=== PATIENT | male | born 1955 | race Caucasian/White ===

== ENCOUNTER 2017-12-15 21:38 | Inpatient (IN) | payer OTHER, SELFPAY ==
[2017-12-15 23:40] VITALS: BP 106/73; PULSE 63; RESP 16; TEMP 36.3; O2SAT 94
[2017-12-15] MEDS: SODIUM CHLORIDE 0.9% 1,000 ML 125 ML IV (23:40)
[2017-12-15 23:50] VITALS: BMI 24.1
[2017-12-16] VITALS (8 sets, daily range): BP systolic 113–122; BP diastolic 72–78; PULSE 56–71; RESP 16; TEMP 36.4–37.5; O2SAT 94–98
[2017-12-16] MEDS: HYDROMORPHONE PCA 6 MG/30 ML PCA.VIAL IV ×4 (00:40→21:56)
--- NOTE | 2017-12-16 01:17 | PC.NURSE ---
Financial Agent Note: [id number]: Arrived via ambulance on stretcher from [facility] [place]. Alert, oriented X3. Pt able to stand walk to bed. NGT in place in rt nare, and clamped for journey to . Saline lock in place in lt forearm. IV NS started at 125cc/hr. Calf SCDs put on. NGT connected to low intermittent wall suction: tube is patent and drainage is clear brown. Valle catheter patent, and urine is clear conrad. 0030: Kenia arrived.
[2017-12-16 05:58] LABS: Add Manual Diff / Slide Review NO; Basophils Percent Auto 0.3 % (0-2); Eosinophils Percent Auto 0.3 % (2-4); Hematocrit 42.8 % (41-53); Hemoglobin 14.6 g/dL (13.5-17.5); Lymphocytes Percent Auto 15.8 % (25-40); Mean Corpuscular HGB Conc 34.1 % (30-36); Mean Corpuscular Hemoglobin 29.9 PG (26-34); Mean Corpuscular Volume 87.7 fL (80-100); Monocytes Percent Auto 7.1 % (3-14); Neutrophils Absolute Auto 7700 /uL (3000-5900); Neutrophils Percent Auto 76.5 % (50-75); Platelet Count 345 X10^3/uL (150-400); Red Blood Cell Count 4.88 X10^6/uL (4.5-5.9); Red Cell Distribution Width 13.6 % (11.6-14.8)
[2017-12-16 06:11] LABS: BUN Creatinine Ratio 17.5 (6-22); Blood Urea Nitrogen 14 mg/dL (9-20); Calcium 8.6 mg/dL (8.4-10.2); Carbon Dioxide 28 mmol/L (22-32); Chloride 104 mmol/L (98-107); Estimated Glomerular Filt Rate > 60.0 mL/min (>60); Glucose 102 mg/dL (80-110); HEMOLYSIS < 15 (0-50); Potassium 3.9 mmol/L (3.4-5.1); Sodium 141 mmol/L (137-145)
[2017-12-16 06:49] LABS: INR 1.2 (0.9-1.3); Prothrombin Time 13.2 SECONDS (10.1-12.7)
--- NOTE | 2017-12-16 07:30 | DI.RAD.S_ITS ---
PROCEDURE: XR ABDOMEN 3V INDICATIONS: small bowel obstruction TECHNIQUE: One view chest and two views of the abdomen were acquired. COMPARISON: None. FINDINGS: Surgical changes and devices: Iatrogenic tubing is noted overlying the hemithorax, likely superficial to the patient. Nasogastric tube is present with distal tip barely past the GE junction. Chest: Lungs are clear. Heart size is normal. No pleural effusions. No pneumoperitoneum. Abdomen: Bowel gas pattern demonstrates moderate dilation with scattered fluid levels. No suspicious calcifications. Visualized solid organ contours appear normal. Bones: No suspicious bony lesions. IMPRESSION: 1. Moderate partial small bowel obstruction. 2. Nasogastric tube as above. Recommend forward advancement. Dictated by: Cheyenne Samuels M.D. on 12/16/2017 at 8:35 Approved by: Cheyenne Samuels M.D. on 12/16/2017 at 8:38
[2017-12-16] MEDS: SODIUM CHLORIDE 0.9% 1,000 ML 125 ML IV ×2 (07:52→17:22)
--- NOTE | 2017-12-16 09:19 | PM.HP.1 ---
History of Present Illness Date Patient Seen: 12/16/17 Time Patient Seen: 07:00 Chief complaint: SMALL BOWEL OBSTRUCTION Narrative: 62-year-old male who presented to the emergency department of an [facility] yesterday evening with a 24 hr history of progressive abdominal pain, distention, nausea, and anorexia. His chief complaint was that of the crampy severe abdominal pain he was experiencing diffusely throughout the abdomen. Pain became intolerable. He felt nauseated but did not vomit. His last meal was yesterday morning. Since then he has not had any desire to eat because of his other symptoms. Denies any subjective fever or chills. Last bowel movement was reportedly normal yesterday morning. He has not passed any stool or significant flatus since then. He has had a few small episodes of flatus since his presentation to the emergency department last evening. Examination and evaluation at the [facility] institution revealed a small bowel obstruction for which he received a nasogastric tube and Valle catheter insertion. He has also received analgesia and IV fluid resuscitation. I was contacted late last evening to transfer the patient to our care since they had no surgical services available at that time. Patient arrived in the general counselor hours today. Patient feeling somewhat more comfortable now than his initial presentation last evening. However, he is still having some issues with intermittent mild crampy abdominal pain and distension. No significant bowel function as yet. Patient History Medical History Cancer of sigmoid colon (Acute) Small bowel obstruction due to postoperative adhesions (Acute) Urinary retention (Acute) Colon obstruction (Resolved) History of DVT (deep vein thrombosis) (Resolved) Surgical History History of colostomy (Acute) History of colostomy reversal (Acute) S/P partial colectomy (Acute) Family & Social History Family History: Reviewed 12/16/17 by Wayne Mark MD Social History: household members spouse,other Prior Living Arrangements House Safety & Behavioral: Feels Safe in Current Yes Environment Been Physically Hurt or No Threatened By a Person Suicidal Ideation Description None Suicide Plan Description No Plan Tobacco & Substance use: Smoking Status Former smoker alcohol intake never Substance Use Type does not use Meds Home Medications Medication Instructions Recorded Confirmed Type docusate sodium [Colace] 100 mg PO BIDP PRN #30 cap 07/03/16 Rx tamsulosin [Flomax] 0.4 mg PO QDAY #10 cap 07/03/16 Rx tramadol 100 mg PO Q6HP PRN #30 07/23/16 Rx warfarin [Coumadin] 7.5 mg PO Q DAY #30 tab 07/23/16 Rx Allergies Allergy/AdvReac Type Severity Reaction Status Date / Time morphine Allergy Nightmare Verified 12/16/17 00:31 Review of Systems Constitutional Constitutional: Reports anorexia, Denies chills, Denies fatigue, Denies fever(s) and Denies weakness Eyes Eyes: Denies change in vision, Denies itchy eyes and Denies loss of vision ENT Ears, Nose, Mouth, and Throat: No change in voice and No difficulty swallowing Cardiovascular Cardiovascular: Denies rapid, pounding, or irregular heartbeat, Denies shortness of breath and Denies shortness of breath with activity Respiratory Respiratory: Denies dyspnea, Denies dyspnea on exertion and Denies wheezing Gastrointestinal Gastrointestinal: Reports as per HPI and Denies dysphagia Genitourinary Genitourinary: Reports difficulty urinating (Patient normally perform self catheterization 3 times daily) Musculoskeletal Musculoskeletal: Denies muscle weakness and Denies radiating pain into limb Integumentary/Breasts Skin/Breast: Denies change in pigmentation, Denies skin swelling and Denies jaundice Neurologic Neurologic: Denies loss of vision and Denies weakness Psychiatric Psychiatric: Denies depression Endocrine Endocrine: Denies fatigue and Denies palpitations Hematologic/Lymphatic Hematologic/Lymphatic: Denies easy bleeding and Denies easy bruising Allergic/Immunologic Allergic/Immunologic: Denies itchy eyes and Denies wheezing Exam Vital Signs (past 8 hours): - 12/16/17 04:25 12/16/17 08:00 Temperature 99.5 F 98.3 F Pulse Rate 71 60 Respiratory Rate 16 16 Blood Pressure 122/76 H 118/73 Pulse Oximetry 94 94 Oxygen Delivery Method Room Air Oxygen Flow Rate 0 Narrative Exam Narrative: Well-nourished well-developed male who appears slightly older than his stated age lying comfortably in bed in no acute distress. Alert oriented x3. is at the bedside for my entire visit Sclera nonicteric Nasogastric tube is in place draining bilious fluid. I advanced the nasogastric tube several cm as this morning's x-ray shows it to be barely within the stomach beyond the gastroesophageal junction. Neck is supple Chest clear to auscultation bilaterally with regular rate and rhythm. No murmurs, gallops, rubs Abdomen is soft but distended and mildly tympanitic. He is tender diffusely but mostly toward the right lateral abdomen. Tenderness is moderate in nature but no involuntary guarding or rebound tenderness is present today. He has well-healed midline abdominal scar and left lower quadrant colostomy site status post colostomy reversal in July 2017. No obvious hernias along the incisions or in the inguinal areas bilaterally. No inguinal lymphadenopathy bilaterally. Femoral pulses are palpable and symmetric bilaterally. I appreciate no abdominal masses. No hepatomegaly. Extremities show no clubbing, cyanosis, or edema Objective Labs Result Diagrams: 12/16/17 05:31 12/16/17 05:31 Labs: Laboratory Results - last 24 hr 12/16/17 12/16/17 12/16/17 05:31 05:31 05:31 WBC 10.0 RBC 4.88 Hgb 14.6 Hct 42.8 MCV 87.7 MCH 29.9 MCHC 34.1 RDW 13.6 Plt Count 345 Neut % (Auto) 76.5 H Lymph % (Auto) 15.8 L [place] % (Auto) 7.1 Eos % (Auto) 0.3 L Baso % (Auto) 0.3 Neut # (Auto) 7700 H PT 13.2 H INR 1.2 Sodium 141 Potassium 3.9 Chloride 104 Carbon Dioxide 28 BUN 14 Creatinine 0.80 Estimated GFR > 60.0 BUN/Creatinine Ratio 17.5 Glucose 102 Calcium 8.6 Blood Type Antibody Screen 12/16/17 05:31 WBC RBC Hgb Hct MCV MCH MCHC RDW Plt Count Neut % (Auto) Lymph % (Auto) [place] % (Auto) Eos % (Auto) Baso % (Auto) Neut # (Auto) PT INR Sodium Potassium Chloride Carbon Dioxide BUN Creatinine Estimated GFR BUN/Creatinine Ratio Glucose Calcium Blood Type A Negative Antibody Screen Negative I have reviewed his laboratory studies from the [facility] emergency department. I repeatedly requested a CT [facility] of [facility] be [facility] for my review, but that has yet to be accomplished. I do have the report which shows a moderate grade bowel obstruction in the distal small bowel with transition point in the mid abdomen. No significant free fluid. No pneumatosis. No free air. No hepatic lesions or other masses. I obtained a three view abdominal series this morning which I have personally reviewed. Again, no free air. No pulmonary infiltrates. Nasogastric tube is as above under examination findings. There is some gas in the left colon but no significant stool otherwise. There are multiple dilated loops of small bowel with air-fluid levels consistent with small-bowel obstruction. Assessment & Plan Plan: Assessment/Plan Narrative: 62-year-old male with acute small-bowel obstruction likely secondary to adhesions several months status post colostomy reversal. He did not require any adjuvant therapy for his sigmoid colon cancer. He has no evidence of mesenteric ischemia or infectious complications at this point. We will attempt non operative management with nasogastric tube decompression, IV fluid resuscitation, and bowel rest. Continue Valle catheter due to his chronic urinary retention and need for strict I&Os to monitor urine output. Continue ASSOCIATE SOFTWARE DEVELOPMENT ENGINEER for pain control. I will allow him a few ice chips for oral comfort. DVT prophylaxis has also been ordered, but he has not been on anticoagulation for some time now since the DVT issue resolved several months after his initial operation. I doubt malignant bowel obstruction, especially in light of recent laparotomy. By his report there was no evidence of any residual cancer, but I do not have those records for review at this time either. I will repeat his laboratory studies tomorrow including a lactate level. Continue to follow his examination clinically. I clearly explained to him and his that if he has evidence of deterioration or if the bowel obstruction fail to resolve in a reasonable time frame over the next 48-72 hours then he may very well require exploratory laparotomy and lysis of adhesions with possible bowel resection. I explained that any operation at this point, which would be his 3rd major laparotomy with in 18 months, would be potentially fraught with complications. If he remains stable but does not show evidence of absolute resolution of the obstruction and I may obtain a small-bowel follow-through. Again I discussed all of this with him and his in detail. All questions were answered to his satisfaction, and he voiced understanding. Orders were written.
--- NOTE | 2017-12-16 09:25 | P.HP_ITS ---
History of Present Illness Date Patient Seen: 12/16/17 Time Patient Seen: 07:00 Chief complaint: SMALL BOWEL OBSTRUCTION Narrative: 62-year-old male who presented to the emergency department of an [facility] yesterday evening with a 24 hr history of progressive abdominal pain, distention, nausea, and anorexia. His chief complaint was that of the crampy severe abdominal pain he was experiencing diffusely throughout the abdomen. Pain became intolerable. He felt nauseated but did not vomit. His last meal was yesterday morning. Since then he has not had any desire to eat because of his other symptoms. Denies any subjective fever or chills. Last bowel movement was reportedly normal yesterday morning. He has not passed any stool or significant flatus since then. He has had a few small episodes of flatus since his presentation to the emergency department last evening. Examination and evaluation at the [facility] institution revealed a small bowel obstruction for which he received a nasogastric tube and Valle catheter insertion. He has also received analgesia and IV fluid resuscitation. I was contacted late last evening to transfer the patient to our care since they had no surgical services available at that time. Patient arrived in the early childhood education worker hours today. Patient feeling somewhat more comfortable now than his initial presentation last evening. However, he is still having some issues with intermittent mild crampy abdominal pain and distension. No significant bowel function as yet. Patient History Medical History Cancer of sigmoid colon (Acute) Small bowel obstruction due to postoperative adhesions (Acute) Urinary retention (Acute) Colon obstruction (Resolved) History of DVT (deep vein thrombosis) (Resolved) Surgical History History of colostomy (Acute) History of colostomy reversal (Acute) S/P partial colectomy (Acute) Family & Social History Family History: Reviewed 12/16/17 by Wayne Mark MD Social History: household members spouse,other Prior Living Arrangements House Safety & Behavioral: Feels Safe in Current Yes Environment Been Physically Hurt or No Threatened By a Person Suicidal Ideation Description None Suicide Plan Description No Plan Tobacco & Substance use: Smoking Status Former smoker alcohol intake never Substance Use Type does not use Meds Home Medications Medication Instructions Recorded Confirmed Type docusate sodium [Colace] 100 mg PO BIDP PRN #30 cap 07/03/16 Rx tamsulosin [Flomax] 0.4 mg PO QDAY #10 cap 07/03/16 Rx tramadol 100 mg PO Q6HP PRN #30 07/23/16 Rx warfarin [Coumadin] 7.5 mg PO Q DAY #30 tab 07/23/16 Rx Allergies Allergy/AdvReac Type Severity Reaction Status Date / Time morphine Allergy Nightmare Verified 12/16/17 00:31 Review of Systems Constitutional Constitutional: Reports anorexia, Denies chills, Denies fatigue, Denies fever(s ) and Denies weakness Eyes Eyes: Denies change in vision, Denies itchy eyes and Denies loss of vision ENT Ears, Nose, Mouth, and Throat: No change in voice and No difficulty swallowing Cardiovascular Cardiovascular: Denies rapid, pounding, or irregular heartbeat, Denies shortness of breath and Denies shortness of breath with activity Respiratory Respiratory: Denies dyspnea, Denies dyspnea on exertion and Denies wheezing Gastrointestinal Gastrointestinal: Reports as per HPI and Denies dysphagia Genitourinary Genitourinary: Reports difficulty urinating (Patient normally perform self catheterization 3 times daily) Musculoskeletal Musculoskeletal: Denies muscle weakness and Denies radiating pain into limb Integumentary/Breasts Skin/Breast: Denies change in pigmentation, Denies skin swelling and Denies jaundice Neurologic Neurologic: Denies loss of vision and Denies weakness Psychiatric Psychiatric: Denies depression Endocrine Endocrine: Denies fatigue and Denies palpitations Hematologic/Lymphatic Hematologic/Lymphatic: Denies easy bleeding and Denies easy bruising Allergic/Immunologic Allergic/Immunologic: Denies itchy eyes and Denies wheezing Exam Vital Signs (past 8 hours): - 12/16/17 04:25 12/16/17 08:00 Temperature 99.5 F 98.3 F Pulse Rate 71 60 Respiratory Rate 16 16 Blood Pressure 122/76 H 118/73 Pulse Oximetry 94 94 Oxygen Delivery Method Room Air Oxygen Flow Rate 0 Narrative Exam Narrative: Well-nourished well-developed male who appears slightly older than his stated age lying comfortably in bed in no acute distress. Alert oriented x3. is at the bedside for my entire visit Sclera nonicteric Nasogastric tube is in place draining bilious fluid. I advanced the nasogastric tube several cm as this morning's x-ray shows it to be barely within the stomach beyond the gastroesophageal junction. Neck is supple Chest clear to auscultation bilaterally with regular rate and rhythm. No murmurs , gallops, rubs Abdomen is soft but distended and mildly tympanitic. He is tender diffusely but mostly toward the right lateral abdomen. Tenderness is moderate in nature but no involuntary guarding or rebound tenderness is present today. He has well -healed midline abdominal scar and left lower quadrant colostomy site status post colostomy reversal in July 2017. No obvious hernias along the incisions or in the inguinal areas bilaterally. No inguinal lymphadenopathy bilaterally. Femoral pulses are palpable and symmetric bilaterally. I appreciate no abdominal masses. No hepatomegaly. Extremities show no clubbing, cyanosis, or edema Objective Labs Result Diagrams: 12/16/17 05:31 12/16/17 05:31 Labs: Laboratory Results - last 24 hr 12/16/17 12/16/17 12/16/17 05:31 05:31 05:31 WBC 10.0 RBC 4.88 Hgb 14.6 Hct 42.8 MCV 87.7 MCH 29.9 MCHC 34.1 RDW 13.6 Plt Count 345 Neut % (Auto) 76.5 H Lymph % (Auto) 15.8 L [place] % (Auto) 7.1 Eos % (Auto) 0.3 L Baso % (Auto) 0.3 Neut # (Auto) 7700 H PT 13.2 H INR 1.2 Sodium 141 Potassium 3.9 Chloride 104 Carbon Dioxide 28 BUN 14 Creatinine 0.80 Estimated GFR > 60.0 BUN/Creatinine Ratio 17.5 Glucose 102 Calcium 8.6 Blood Type Antibody Screen 12/16/17 05:31 WBC RBC Hgb Hct MCV MCH MCHC RDW Plt Count Neut % (Auto) Lymph % (Auto) [place] % (Auto) Eos % (Auto) Baso % (Auto) Neut # (Auto) PT INR Sodium Potassium Chloride Carbon Dioxide BUN Creatinine Estimated GFR BUN/Creatinine Ratio Glucose Calcium Blood Type A Negative Antibody Screen Negative I have reviewed his laboratory studies from the [facility] emergency department. I repeatedly requested a CT [facility] of [facility] be [facility] for my review, but that has yet to be accomplished. I do have the report which shows a moderate grade bowel obstruction in the distal small bowel with transition point in the mid abdomen. No significant free fluid. No pneumatosis. No free air. No hepatic lesions or other masses. I obtained a three view abdominal series this morning which I have personally reviewed. Again, no free air. No pulmonary infiltrates. Nasogastric tube is as above under examination findings. There is some gas in the left colon but no significant stool otherwise. There are multiple dilated loops of small bowel with air-fluid levels consistent with small-bowel obstruction. Assessment & Plan Plan: Assessment/Plan Narrative: 62-year-old male with acute small-bowel obstruction likely secondary to adhesions several months status post colostomy reversal. He did not require any adjuvant therapy for his sigmoid colon cancer. He has no evidence of mesenteric ischemia or infectious complications at this point. We will attempt non operative management with nasogastric tube decompression, IV fluid resuscitation, and bowel rest. Continue Valle catheter due to his chronic urinary retention and need for strict I&Os to monitor urine output. Continue REMEDIATION CONSULTANT for pain control. I will allow him a few ice chips for oral comfort. DVT prophylaxis has also been ordered, but he has not been on anticoagulation for some time now since the DVT issue resolved several months after his initial operation. I doubt malignant bowel obstruction, especially in light of recent laparotomy. By his report there was no evidence of any residual cancer, but I do not have those records for review at this time either. I will repeat his laboratory studies tomorrow including a lactate level. Continue to follow his examination clinically. I clearly explained to him and his that if he has evidence of deterioration or if the bowel obstruction fail to resolve in a reasonable time frame over the next 48-72 hours then he may very well require exploratory laparotomy and lysis of adhesions with possible bowel resection. I explained that any operation at this point, which would be his 3rd major laparotomy with in 18 months, would be potentially fraught with complications. If he remains stable but does not show evidence of absolute resolution of the obstruction and I may obtain a small-bowel follow-through. Again I discussed all of this with him and his in detail. All questions were answered to his satisfaction, and he voiced understanding. Orders were written.
[2017-12-16] MEDS: PANTOPRAZOLE 40 MG VIAL IV (09:37)
[2017-12-16] MEDS: ENOXAPARIN 40 MG/0.4 ML SYRINGE SUBCUT (09:37)
[2017-12-16] MEDS: levoFLOXacin 750 MG/150 ML PIGGYBACK 100 MG IV (14:40)
--- NOTE | 2017-12-16 15:31 | CM.IDA ---
Addendum entered by MAGY Pierson 12/16/17 15:39: Sent email to admissions to update insurance information from self pay to [employer] (spouse is policy fong). Original Note: DCP Assessment Note: Pt is a 62 yo male, resident of [place]. Pt admitted for SBO. Pt's PCP is not listed. Insurance, as confirmed by pt and spouse, is [employer]. See Assessment below. Home is expected. Discharge Planning/Care Management CM Discharge Assessment Start: 12/16/17 15:21 Freq: Status: Active Protocol: Document 12/16/17 15:21 MINERVA (Rec: 12/16/17 15:31 MINERVA [id number]) Discharge Planning Assessment Assigned Data Collector MINERVA History Provided By Patient Significant Other Prior Living Arrangements House Household Members spouse other Independent with ADL's Yes Is patient alert and oriented? Yes Referrals Initiated None needed Comment Pending hospital course Discharge Plan Home Transportation Arrangement Spouse Additional Comment Met w/pt and spouse this afternoon. Spouse Kenia is an RN here at . Pt hopeful his condition will improve and he will not need surgery. Pt is indp at baseline, and if he does not need surgery, expects to return home w/spouse to assist prn. Review Status In Process Next Review Type Discharge Review
--- NOTE | 2017-12-16 17:10 | P.PN_ITS ---
Subjective Date Patient Seen: 12/16/17 Time Patient Seen: 17:06 Interval history: Patient feeling slightly better. No flatus or bowel movement however. Denies nausea or vomiting. Has occasional hiccups but nasogastric tube functioning well in good position. Continues to make adequate urine being collected by Valle catheter. Pain is subsiding but still present intermittently. Feels less distended this afternoon. Exam Vital Signs (past 8 hours): - 12/16/17 09:30 12/16/17 12:00 12/16/17 15:20 Temperature 98.5 F 97.9 F Pulse Rate 56 L 62 Respiratory Rate 16 16 Blood Pressure 121/73 H 113/78 Pulse Oximetry 98 96 98 Oxygen Delivery Method Room Air Oxygen Flow Rate 0 Narrative Exam Narrative: No fevers. No tachycardia. Hemodynamically stable Resting comfortably in bed in no acute distress. Alert oriented x3 is at the bedside Abdomen is slightly less distended and softer this afternoon. He remains tender throughout the abdomen but his right lower quadrant tenderness at is much less pronounced this afternoon on examination. No guarding or rebound Objective Labs Result Diagrams: 12/16/17 05:31 12/16/17 05:31 Labs: Laboratory Results - last 24 hr 12/16/17 12/16/17 12/16/17 05:31 05:31 05:31 WBC 10.0 RBC 4.88 Hgb 14.6 Hct 42.8 MCV 87.7 MCH 29.9 MCHC 34.1 RDW 13.6 Plt Count 345 Neut % (Auto) 76.5 H Lymph % (Auto) 15.8 L [place] % (Auto) 7.1 Eos % (Auto) 0.3 L Baso % (Auto) 0.3 Neut # (Auto) 7700 H PT 13.2 H INR 1.2 Sodium 141 Potassium 3.9 Chloride 104 Carbon Dioxide 28 BUN 14 Creatinine 0.80 Estimated GFR > 60.0 BUN/Creatinine Ratio 17.5 Glucose 102 Calcium 8.6 Blood Type Antibody Screen 12/16/17 05:31 WBC RBC Hgb Hct MCV MCH MCHC RDW Plt Count Neut % (Auto) Lymph % (Auto) [place] % (Auto) Eos % (Auto) Baso % (Auto) Neut # (Auto) PT INR Sodium Potassium Chloride Carbon Dioxide BUN Creatinine Estimated GFR BUN/Creatinine Ratio Glucose Calcium Blood Type A Negative Antibody Screen Negative Assessment & Plan Plan: Assessment/Plan Narrative: 62-year-old male with partial small-bowel obstruction likely secondary to adhesions after recent laparotomies including colostomy reversal. Currently he is stable. He has no evidence of mesenteric ischemia or complete bowel obstruction. His exam is mildly improved. I will therefore continue conservative non operative management with nasogastric tube decompression, bowel rest, and IV fluid resuscitation. All questions were answered to his satisfaction, and he voiced understanding. We will repeat his laboratory studies tomorrow. If he does not show evidence of significant progress over the next 24 to 48 hr but is otherwise stable then we will obtain a small-bowel follow-through study. Of note, the patient's CT scan films from the outlying institution never were available on our radiology system. We will continue to try to obtain those for comparison purposes.
[2017-12-16] MEDS: BENZOCAINE/MENTHOL 1 LOZ PKT 1 EACH PO ×2 (19:20→21:59)
[2017-12-17] VITALS (9 sets, daily range): BP systolic 115–131; BP diastolic 62–81; PULSE 59–83; RESP 16–18; TEMP 36.5–37.1; O2SAT 93–98
[2017-12-17] MEDS: SODIUM CHLORIDE 0.9% 1,000 ML 125 ML IV (01:34)
[2017-12-17 05:20] LABS: Add Manual Diff / Slide Review NO; Basophils Percent Auto 1.1 % (0-2); Eosinophils Percent Auto 3.7 % (2-4); Hematocrit 38.3 % (41-53); Lymphocytes Percent Auto 27.3 % (25-40); Mean Corpuscular Hemoglobin 29.9 PG (26-34); Mean Corpuscular Volume 87.8 fL (80-100); Monocytes Percent Auto 9.1 % (3-14); Neutrophils Absolute Auto 4300 /uL (3000-5900); Neutrophils Percent Auto 58.8 % (50-75); Platelet Count 279 X10^3/uL (150-400); Red Blood Cell Count 4.36 X10^6/uL (4.5-5.9); Red Cell Distribution Width 13.4 % (11.6-14.8); White Blood Cell Count 7.3 X10^3/uL (4.5-11.0)
[2017-12-17 05:30] LABS: Lactate (Lactic Acid) 0.6 mmol/L (0.7-2.1)
[2017-12-17 05:31] LABS: Blood Urea Nitrogen 16 mg/dL (9-20); Carbon Dioxide 28 mmol/L (22-32); Chloride 105 mmol/L (98-107); Estimated Glomerular Filt Rate > 60.0 mL/min (>60); Glucose 83 mg/dL (80-110); HEMOLYSIS < 15 (0-50); Potassium 3.6 mmol/L (3.4-5.1); Sodium 140 mmol/L (137-145)
[2017-12-17] MEDS: HYDROMORPHONE PCA 6 MG/30 ML PCA.VIAL IV (06:09)
--- NOTE | 2017-12-17 07:11 | PM.PN.1 ---
Subjective Date Patient Seen: 12/17/17 Time Patient Seen: 07:11 Interval history: Patient states that his pain has decreased significantly. He still has some residual right-sided abdominal pain which is well controlled with the INSURANCE MARKETING REP currently. He did pass flatus and a formed stool this morning. Valle catheter remains in place. He would like to Valle to remain in place until such time he is more ambulatory then he will resume his usual self catheterization regimen. Denies any nausea or vomiting. Hiccups have resolved. No chest pain or shortness of breath. No subjective fever or chills. Exam Vital Signs (past 8 hours): - 12/16/17 23:50 12/17/17 01:18 12/17/17 05:00 Temperature 99.1 F 98.3 F Pulse Rate 61 62 Respiratory Rate 16 16 Blood Pressure 121/72 H 115/74 Pulse Oximetry 96 97 95 Oxygen Delivery Method Room Air Oxygen Flow Rate 0 Narrative Exam Narrative: Well-nourished well-developed in no acute distress. Lying comfortably in bed. is at the bedside. Alert oriented x3. No fevers. Heart rate and blood pressure remain normal. Chest clear to auscultation bilaterally with regular rate and rhythm. No crackles or wheezes. Abdomen shows few active bowel sounds throughout. He is less distended. He is not tympanitic today. Remains mildly tender in the right lateral abdomen only but certainly with no guarding or rebound. Tenderness is actually much less than at his initial examination. No masses. Extremities show no clubbing, cyanosis, or edema Valle catheter is draining adequate amounts of clear yellow urine Nasogastric tube output remains moderate and somewhat bilious. Objective Labs Result Diagrams: 12/17/17 05:03 12/17/17 05:03 Labs: Laboratory Results - last 24 hr 12/16/17 12/17/17 12/17/17 05:31 05:03 05:03 WBC 7.3 RBC 4.36 L Hgb 13.0 L Hct 38.3 L MCV 87.8 MCH 29.9 MCHC 34.0 RDW 13.4 Plt Count 279 Neut % (Auto) 58.8 Lymph % (Auto) 27.3 Steele % (Auto) 9.1 Eos % (Auto) 3.7 Baso % (Auto) 1.1 Neut # (Auto) 4300 Sodium 140 Potassium 3.6 Chloride 105 Carbon Dioxide 28 BUN 16 Creatinine 0.80 Estimated GFR > 60.0 BUN/Creatinine Ratio 20.0 Glucose 83 Lactate Calcium 8.0 L Blood Type A Negative Antibody Screen Negative 12/17/17 05:03 WBC RBC Hgb Hct MCV MCH MCHC RDW Plt Count Neut % (Auto) Lymph % (Auto) Steele % (Auto) Eos % (Auto) Baso % (Auto) Neut # (Auto) Sodium Potassium Chloride Carbon Dioxide BUN Creatinine Estimated GFR BUN/Creatinine Ratio Glucose Lactate 0.6 L Calcium Blood Type Antibody Screen Assessment & Plan Plan: Assessment/Plan Narrative: 62-year-old male with partial small-bowel obstruction likely secondary to adhesions from prior operations who is clinically improving. His laboratory studies today show no significant concerning findings. Lactate and white blood cell count are normal. Mildly hypokalemic but otherwise his electrolytes and renal function are unremarkable. He is producing adequate urine and is appropriately fluid resuscitated. Still has evidence of moderate nasogastric tube output consistent with partial small-bowel obstruction. Therefore we will continue the tube for now despite returning bowel function. Hopefully he will continue to pass flatus and return to baseline bowel function with resolution of the obstruction. Will obtain a small-bowel follow-through tomorrow to better ascertain the degree of the obstruction at this point as well as overall bowel transit. Continue DVT and ulcer prophylaxis. Ambulate aggressively today. Encourage pulmonary toilet as well. Changed to maintenance IV fluids with the addition of some potassium as well. All questions were answered to his satisfaction, and he voiced understanding. Orders were written.
[2017-12-17] MEDS: PANTOPRAZOLE 40 MG VIAL IV (08:19)
[2017-12-17] MEDS: DEXTROSE 5%-NS W/KCL 20MEQ 1,000 ML 100 MEQ IV ×2 (08:19→19:28)
[2017-12-17] MEDS: ENOXAPARIN 40 MG/0.4 ML SYRINGE SUBCUT (08:19)
--- NOTE | 2017-12-17 14:00 | PC.NURSE ---
GI: SI'm doing lots better. No pain, no use of surveyor chain helper this shift. No nausea. Abd still a little firm and sl tender. Did have large bm today. Spouse in at bedside most of shift. Has been up in the room. Resting quietly. Cont w/poc.
[2017-12-17] MEDS: levoFLOXacin 750 MG/150 ML PIGGYBACK 150 MG IV (14:30)
[2017-12-17] MEDS: BENZOCAINE/MENTHOL 1 LOZ PKT 1 EACH PO ×2 (19:27→22:51)
[2017-12-18] VITALS (9 sets, daily range): BP systolic 120–143; BP diastolic 76–86; PULSE 60–71; RESP 14–18; TEMP 36.6–36.8; O2SAT 95–99
--- NOTE | 2017-12-18 | DI.RAD.S_ITS ---
PROCEDURE: FL SMALL BOWEL FOLLOW THROUGH INDICATIONS: Small-bowel obstruction COMPARISON: [facility], CR, XR ABDOMEN 3V, 12/16/2017, 6:01. FINDINGS: KUB: Preprocedural planer hand film demonstrates a normal bowel gas pattern. No suspicious abdominal calcifications. Nasogastric tube looped in the stomach. Visualized solid organ contours appear normal. No suspicious bony abnormalities. Small bowel: There is rapid transit time of Gastrografin through the small bowel, complete at 20 minutes with contrast to the rectum at 35 minutes. Small bowel loops are of normal caliber throughout. Mucosal folds are smooth and of normal thickness. No strictures, intraluminal masses, or extrinsic mass effects are noted. Surgical clip in the right hemipelvis. IMPRESSION: Gastrografin given through the nasogastric tube passes through the small and large bowel to the rectum in 35 minutes. Dictated by: Chente Heller M.D. on 12/18/2017 at 9:26 Approved by: Chente Heller M.D. on 12/18/2017 at 9:29
--- NOTE | 2017-12-18 00:09 | PC.NURSE ---
Addendum entered by Frannie Quach R.N. 12/18/17 04:11: Complains of throat soreness from NG tube; medicated with Cepacol. Also complains that left arm from former IV site is sore; ice pack provided. Reminded he also has POWER DISTRIBUTION ENGINEER that can be used if pain warrants it, but patient declines to use. Original Note: Patient is alert and oriented. Breath sounds with expiratory wheeze in right LL but otherwise CTA with RA sat of 98%. HRR. Denies nausea. NG to medium intermittent suction as set by MD per evening RN; bile colored drainage noted. BT present and abdomen is soft. Patient states he is passing flatus and had 2 formed BM's on previous shift. Indwelling catheter is patent; normally self caths at home. Independent with mobility. Refusing to wear SCD's so reminded to ankle wave when awake and patient verbalizes understanding of why SCD's are used and risks associated with not using them. Currently denies pain but has POWER DISTRIBUTION ENGINEER to use prn. Fall risk score is medium but bed alarm not needed at this time as patient is steady on feet and rooming in.
[2017-12-18] MEDS: BENZOCAINE/MENTHOL 1 LOZ PKT 1 EACH PO (04:09)
[2017-12-18] MEDS: DEXTROSE 5%-NS W/KCL 20MEQ 1,000 ML 100 MEQ IV (06:45)
--- NOTE | 2017-12-18 10:41 | P.PN_ITS ---
Subjective Date Patient Seen: 12/18/17 Time Patient Seen: 10:37 Interval history: Denies nausea or vomiting. Passing flatus and stool last evening and again this morning after his small-bowel follow-through study. Feels that his appetite is returning slowly. Denies any fever or chills subjectively. No chest pain or shortness of breath. His abdominal pain has completely resolved since yesterday. Exam Vital Signs (past 8 hours): - 12/18/17 04:11 12/18/17 08:00 Temperature 97.8 F 98.3 F Pulse Rate 61 60 Respiratory Rate 16 18 Blood Pressure 139/86 H 143/77 H Pulse Oximetry 96 95 Oxygen Delivery Method Room Air Oxygen Flow Rate 0 Narrative Exam Narrative: Well-nourished well-developed male lying comfortably in bed in no acute distress. Alert oriented x3. is at the bedside. Neck is supple Chest clear to auscultation bilaterally with regular rate and rhythm Abdomen shows active bowel sounds. He is completely nondistended and not tympanitic today. He has absolutely no tenderness on examination today as well. No palpable masses. Extremities show no clubbing, cyanosis, or edema Valle catheter is draining clear yellow urine. Nasogastric tube is essentially clear fluid at this point with no bile. Objective Labs Result Diagrams: 12/17/17 05:03 12/17/17 05:03 Labs: I have personally reviewed his small-bowel follow-through study done this morning. The Gastrografin coursed from the stomach to the rectum at approximately 35 min. All small bowel loops were of normal caliber with no air- fluid levels or dilatation. No evidence of strictures or obstruction of any kind. Assessment & Plan Plan: Assessment/Plan Narrative: 62-year-old male with spontaneously resolving small-bowel obstruction likely secondary to adhesions who is currently doing quite well. I discontinued his nasogastric tube and will allow him a clear liquid diet. He may shower and ambulate as tolerated. Decrease IV fluid rate. Discontinue the Valle catheter and return to his usual daily regimen of straight catheterization. If he does well otherwise with ongoing bowel function and tolerating clear liquids throughout the day today then I will advance his diet this evening. If he continues to do well thereafter then likely discharge home tomorrow if he is stable. All the above discussed with the patient and his in detail. All questions were answered to their satisfaction, and the patient voiced understanding. Orders were written.
--- NOTE | 2017-12-18 11:29 | CM.DPC ---
DCP Cont: Per MD, pt continues to improve and NG tube and ware discontinued today and advancing pt to liquid diet and if pt tolerates then can advance his diet more this evening with possible d/c home tomorrow if medically stable. Plan: SW to follow tomorrow to see if pt tolerated advanced diet towards possible d/c home with RN spouse Jude if medically stable. MAGY Panchal
--- NOTE | 2017-12-18 14:20 | PC.NURSE ---
Am Shift Pt is cooperative with care, denies nausea, NG to Mod In. suction.BT+ no nausea, ice chips at bedside. Removed for small bowel follow through this AM. Taken by w/c. Pt has not been using AGENCY CASHIER for pain control x2 shifts. Will follow up with Dr Mark. Returned from imaging with completed results. Per NATALI Carmona, cleared into rectum within 40 min. Pt updated on POC and Dr Mark into evaluate Pt, pulled NG tube. Clear liq diet started. Removed ware, Pt will resume home self cathing schedule TID.
[2017-12-18] MEDS: ENOXAPARIN 40 MG/0.4 ML SYRINGE SUBCUT (14:50)
[2017-12-18] MEDS: PANTOPRAZOLE 40 MG VIAL IV (14:50)
[2017-12-18] MEDS: HYDROMORPHONE PCA 6 MG/30 ML PCA.VIAL IV (14:50)
[2017-12-18] MEDS: levoFLOXacin 750 MG/150 ML PIGGYBACK 100 MG IV (15:06)
--- NOTE | 2017-12-18 23:05 | PC.NURSE ---
Evening Shift Note Pt requesting to have L FA PIV d/t discomfort w/ infusion, PIV dc'd. Attempted to restart PIV x2 and unable to do so. Pt w/ adequate intake/output and several BMs today. Plan for possible dc tomorrow. MD paged regarding IV access, per MD ok to leave IV out and stop IV fluids and MARKETING TECHNOLOGY SPECIALIST. Pt agreeable w/ plan. No complaints or discomfort. Able to self cath x1 this shift. at bedside.
--- NOTE | 2017-12-19 00:02 | PC.NURSE ---
Addendum entered by Frannie Quach R.N. 12/19/17 06:38: Patient slept at intervals. Continues to do well, denying pain and/or nausea. Hoping to DC home later this morning. Original Note: Patient is alert and oriented. Breath sounds CTA with RA sat of 96%. HRR. Denies nausea. BT present and abdomen is soft; passing flatus and has had BM's. Catheter d'cd yesterday and patient is now doing self cath approximately q6h as is his usual related to urinary retention. Independent with mobility. Having minimal discomfort in left arm from previously infiltrated IV and has noted firm area on anterior forearm but no redness; declines any intervention. Refusing SCD's and is up/out of bed frequently. Fall risk score is low. rooming in.
[2017-12-19 06:00] VITALS: BP 129/81; PULSE 62; RESP 18; TEMP 36.4; O2SAT 96
[2017-12-19 07:00] VITALS: O2SAT 96
[2017-12-19 07:20] VITALS: BP 120/75; PULSE 62; RESP 16; TEMP 36.7; O2SAT 97
[2017-12-19] MEDS: ENOXAPARIN 40 MG/0.4 ML SYRINGE SUBCUT (08:52)
[2017-12-19 11:20] VITALS: BP 123/57; PULSE 60; RESP 17; TEMP 36.7; O2SAT 95
[2017-12-19 15:00] VITALS: BP 116/44; PULSE 59; RESP 16; TEMP 36.9; O2SAT 96; O2SAT 98
--- NOTE | 2017-12-19 18:14 | P.DS_ITS ---
History of Present Illness Date Patient Seen: 12/19/17 Time Patient Seen: 18:13 Chief complaint: SMALL BOWEL OBSTRUCTION Narrative: 62-year-old male who presented to the emergency department of an [facility] yesterday evening with a 24 hr history of progressive abdominal pain, distention, nausea, and anorexia. His chief complaint was that of the crampy severe abdominal pain he was experiencing diffusely throughout the abdomen. Pain became intolerable. He felt nauseated but did not vomit. His last meal was yesterday morning. Since then he has not had any desire to eat because of his other symptoms. Denies any subjective fever or chills. Last bowel movement was reportedly normal yesterday morning. He has not passed any stool or significant flatus since then. He has had a few small episodes of flatus since his presentation to the emergency department last evening. Examination and evaluation at the [facility] revealed a small bowel obstruction for which he received a nasogastric tube and Valle catheter insertion. He has also received analgesia and IV fluid resuscitation. I was contacted late last evening to transfer the patient to our care since they had no surgical services available at that time. Patient arrived in the channel cementer outsole machine hours today. Patient feeling somewhat more comfortable now than his initial presentation last evening. However, he is still having some issues with intermittent mild crampy abdominal pain and distension. No significant bowel function as yet. Discharge Providers Date of admission: 12/15/17 21:38 Consults: 12/15/17 21:47 Consult to Discharge Planning Routine Comment: 12/16/17 00:12 Consult to Pastoral Services Routine Comment: Pt requested [facility] Discharge provider: Wayne Mark MD Summary Discharge Diagnosis: 1. History sigmoid colon cancer 2. Status post [place] procedure 2016 3. Status post colostomy reversal July 2017 4. Small-bowel obstruction likely secondary to adhesions this admission, spontaneously resolve 5. Chronic urinary retention for which the patient requires self straight catheterization 3 times daily 6. History of axillary vein deep venous thrombosis subsequently resolved 7. Urinary tract infection, resolved Hospital Course: 62-year-old male who presented to an [facility] emergency department with complaints of severe abdominal pain, distention, and vomiting. Examination and evaluation including radiographic studies were consistent with small-bowel obstruction. Patient was transferred to this facility for surgical consultation. Patient was treated non operatively with nasogastric tube decompression, Valle catheter insertion, IV fluid resuscitation, and bowel rest. He also had a history of recent urinary tract infection for which he was already being treated with oral ciprofloxacin. He was therefore continued on intravenous levofloxacin this admission to complete his course. Patient responded nicely to conservative measures and resolve the bowel obstruction spontaneously. Nasogastric tube and Valle catheter were discontinued. Patient resumed his self catheterization 3 times daily. He was advanced slowly to a regular diet which he is tolerating well at the time of discharge. He is ambulating without difficulty. He is completely without pain at the time of discharge. No fevers or chills. He has been completely afebrile and hemodynamically stable throughout his stay. A small-bowel follow-through done on December 18, 2017 showed complete resolution of the small-bowel obstruction with no evidence of air-fluid levels or dilated bowel. Transit time through the bowel and the colon was unimpeded. Because of his overall improved condition he is discharged home. He will follow up with his family physician in the next several weeks as scheduled. He may follow up with surgery services as needed for any recurrent issues or symptoms. All the above was discussed with the patient and his . Questions were answered to their satisfaction, and the patient voiced understanding. Status at Discharge Cognitive/behavioral status at discharge: Alert oriented x3 Functional status at discharge: independent ambulation Overall status at discharge: patient is back to baseline Time Spent with Patient Less than 30 minutes Exam Vital Signs (past 8 hours): - 12/19/17 11:20 12/19/17 15:00 Temperature 98.1 F 98.5 F Pulse Rate 60 59 L Respiratory Rate 17 16 Blood Pressure 123/57 H 116/44 L Pulse Oximetry 95 96 Oxygen Delivery Method Room Air Oxygen Flow Rate 0 Narrative Exam Narrative: Well-nourished well-developed male in no acute distress. Alert oriented x3. He is ambulating about the room without issue is at the bedside Sclera nonicteric Neck is supple Chest clear to auscultation with regular rate and rhythm. No murmurs, gallops, rubs. No crackles or wheezes Abdomen is soft, nondistended, nontender, no masses. No guarding or rebound. No hepatomegaly. Well-healed surgical scars without hernias. Extremities show no clubbing, cyanosis, or edema Objective Labs Result Diagrams: 12/17/17 05:03 12/17/17 05:03 Labs: Small-bowel follow-through study showed complete resolution of the obstruction with normal transit time of contrast through the colon as indicated above. Discharge Plan Discharge Plan Patient Disposition: Home, Self-Care Discharge Med Rec/Prescriptions Prescriptions: Continue No Known Home Medications RF: 0 Provider Discharge Instructions Diet: Diet as Tolerated Activity: As tolerated Wound Care Report to your healthcare provider any signs of infection, such as:: chills, fever and increased pain Visit Report/Discharge Packet Instructions: Small Bowel Obstruction, DI for Small Bowel Obstruction Visit Report Forms: Stroke Signs & Symptoms Discharge Data Attending Provider: Wayne Mark Admit Date/Time: 12/15/17 21:38
--- NOTE | 2017-12-19 18:30 | PC.NURSE ---
Dr Mark here to see Bridger. LUCAS orders written. DC paperwork reviewed with Bridger & his . [facility] DI explained. All paperwork & belongings sent with them, Bridger wheeled down to ER entrance by AIR DEODORIZER SERVICER, where going home via private car. Patient has no IV, it was removed yesterday.
== END 2017-12-19 18:32 | disposition home or self-care (01) | DRG 389 ==
PROVIDERS: Admitting Provider Surgery; Visit Provider Surgery
DX: K56.50 Intestinal adhesions [bands], unspecified as to partial versus complete obstruction (principal); N39.0 Urinary tract infection, site not specified; Z85.038 Personal history of other malignant neoplasm of large intestine; Z87.891 Personal history of nicotine dependence; Z86.718 Personal history of other venous thrombosis and embolism; Z79.01 Long term (current) use of anticoagulants; R33.9 Retention of urine, unspecified
CPT/HCPCS: 36415; 36592; 74021; 74250; 80048; 83605; 85025; 85610; 86850; 86900; 86901; C9113; J1650; J1956